=== PATIENT | female | born 2000 | race Hispanic/Latino ===

== ENCOUNTER 2025-10-12 17:12 | Emergency (ER) | payer SELFPAY ==
[2025-10-12] MEDS ORDERED: Ketorolac Tromethamine 30 MG (1 mL) VIAL ONE (18:36)
== END 2025-10-12 18:14 | disposition home or self-care (01) ==
LOC: CSHERS 17:12
DX: B34.9 Viral infection, unspecified (principal); R11.2 Nausea with vomiting, unspecified
CPT/HCPCS: 87428; 96372; 99283; J1885; Q0162

== ENCOUNTER 2025-11-08 07:25 | Emergency (ER) | payer SELFPAY ==
[2025-11-08] MEDS ORDERED: Acetaminophen 500 MG TAB ONE (08:19)
[2025-11-08] MEDS ORDERED: Ibuprofen 200 MG TAB ONE (08:19)
== END 2025-11-08 10:28 | disposition home or self-care (01) ==
LOC: CSHERS 07:25
DX: S82.002A Unspecified fracture of left patella, initial encounter for closed fracture (principal); W01.0XXA Fall on same level from slipping, tripping and stumbling without subsequent striking against object, initial encounter
CPT/HCPCS: 99283